=== PATIENT | female | born 1960 | race Caucasian/White ===

== ENCOUNTER → 2018-06-21 | Outpatient (CLI) | payer MEDICARE, MEDICAID ==
[~2018-06-21] MED LIST: ALEN70TA5 PO; OXYC-432 PO; RIVA15TA PO; TOPI25TA8 PO
== END | disposition home or self-care (01) ==
LOC: STAR 14:10
PROVIDERS: ATTEND Surgery
DX: Z02.9 Encounter for administrative examinations, unspecified (principal)

== ENCOUNTER 2018-06-25 10:39 | Day surgery (SDC) | payer MEDICARE, MEDICAID ==
[~2018-06-25] VITALS: Ht 160 cm; Wt 79.6 kg
[2018-06-25 11:10] VITALS: BP 139/103
[2018-06-25] MEDS: LACTATED RINGERS 1,000 ML IV SCH ×2 (11:32→18:19)
[2018-06-25 11:57] LABS: BASOPHILS # (AUTO) 0.03 x10^3/uL (0-0.1); BASOPHILS % (AUTO) 0 % (0-1); EOSINOPHILS # (AUTO) 0.14 x10^3/uL (0-0.4); EOSINOPHILS % (AUTO) 2 % (1-7); LYMPHOCYTES # (AUTO) 1.71 x10^3/uL (1-3.4); LYMPHOCYTES % (AUTO) 27 % (22-44); MD NO; MEAN CORPUSCULAR HEMOGLOBIN 30.1 pg (27.0-34.8); MEAN CORPUSCULAR HGB CONC 33.2 g/dL (32.4-35.8); MEAN CORPUSCULAR VOLUME 90.7 fL (80-100); MEAN PLATELET VOLUME 8.6 fL (7.4-10.4); MONOCYTES # (AUTO) 0.38 x10^3/uL (0.2-0.8); MONOCYTES % (AUTO) 6 % (2-9); NEUTROPHILS # (AUTO) 3.98 x10^3/uL (1.8-6.8); NEUTROPHILS % (AUTO) 64 % (42-75); PLATELET COUNT 288 x10^3/uL (130-400); RED BLOOD COUNT 4.61 x10^6/uL (3.82-5.3); RED CELL DISTRIBUTION WIDTH 14.8 % (9.6-15.2)
[2018-06-25 12:11] LABS: ALANINE AMINOTRANSFERASE 18 U/L (12-78); ALBUMIN 3.1 g/dL (3.4-5.0); ANION GAP 8 mmol/L (5-15); CALCIUM 8.9 mg/dL (8.5-10.1); CHLORIDE 109 mmol/L (98-107)
[2018-06-25 12:13] LABS: ALKALINE PHOSPHATASE 152 U/L (45-117); BILIRUBIN,TOTAL 0.3 mg/dL (0.2-1.0); CREATININE 0.65 mg/dL (0.55-1.02)
[2018-06-25] MEDS ORDERED: BUPIVACAINE/PF 0.5% ONE (12:54)
[2018-06-25] MEDS ORDERED: EPINEPHRINE 1 MG/ML, 1ML ONE (12:54)
[2018-06-25] MEDS ORDERED: BUPIVACAINE/PF-EPI 0.25% 1:200K ONE (12:54)
[2018-06-25] MEDS ORDERED: ONDANSETRON ODT 8 MG PO ONE (13:00)
[2018-06-25] MEDS ORDERED: ACETAMINOPHEN 500 MG TABLET PO ONE (13:00)
[2018-06-25] MEDS ORDERED: FENTANYL PF 250 MCG/5ML ONE ×2 (13:41→14:54)
[2018-06-25] MEDS ORDERED: MIDAZOLAM 1 MG/ML, 2ML ONE (13:41)
[2018-06-25] MEDS ORDERED: PROPOFOL 10 MG/ML, 20ML ONE (13:42)
[2018-06-25] MEDS ORDERED: SODIUM CHLORIDE 0.9% PF 10ML ONE (13:43)
[2018-06-25] MEDS ORDERED: ROCURONIUM 10MG/ML,5ML ONE ×2 (13:43→14:32)
[2018-06-25] MEDS ORDERED: CEFAZOLIN 1,000 MG ONE ×2 (13:43)
[2018-06-25] MEDS ORDERED: GLYCOPYRROLATE 0.4 MG/2 ML, 2ML ONE (13:44)
[2018-06-25] MEDS ORDERED: NEOSTIGMINE 1 MG/ML, 10ML ONE (13:44)
[2018-06-25] MEDS ORDERED: DEXAMETHASONE 4 MG/ML, 1ML ONE ×2 (13:45)
[2018-06-25] MEDS ORDERED: ONDANSETRON 2MG/ML, 2ML ONE (13:45)
[2018-06-25] MEDS ORDERED: OXYcodone 5 MG/5 ML ORAL.SOL UDC PO PRN ×2 (14:00→17:00)
[2018-06-25] MEDS ORDERED: ONDANSETRON ODT 8 MG PO PRN (14:00)
[2018-06-25] MEDS ORDERED: PROMETHAZINE 25 MG/ML, 1ML IM PRN ×2 (14:00)
[2018-06-25] MEDS ORDERED: PROMETHAZINE 25 MG SUPP PR PRN (14:00)
[2018-06-25] MEDS ORDERED: hydrALAzine 20 MG/ML, 1ML IV PRN (14:00)
[2018-06-25] MEDS ORDERED: PROMETHAZINE 25 MG/ML, 1ML IV PRN (14:00)
[2018-06-25] MEDS ORDERED: MEPERIDINE/PF 25MG/0.5ML IVPush PRN (14:00)
[2018-06-25] MEDS ORDERED: LABETALOL 5MG/ML, 20ML IV PRN (14:00)
[2018-06-25] MEDS ORDERED: ONDANSETRON 2MG/ML, 2ML IV PRN (14:00)
[2018-06-25] MEDS ORDERED: MORPHINE SULFATE 4 MG/ML, 1ML IVPush PRN (14:00)
[2018-06-25] MEDS ORDERED: PROMETHAZINE 12.5 MG SUPP PR PRN (14:00)
[2018-06-25] MEDS: FENTANYL PF 100 MCG/2ML IV PRN ×2 (16:30→18:19)
[2018-06-25] MEDS ORDERED: FENTANYL PF 100 MCG/2ML ONE (16:32)
[2018-06-25] MEDS ORDERED: HYDROmorphone 2 MG/ML, 1ML ONE (16:42)
[2018-06-25] MEDS ORDERED: OXYcodone 5 MG/5 ML ORAL.SOL UDC ONE (16:43)
[2018-06-25] MEDS: HYDROmorphone 1 MG/ML, 1ML IV PRN ×3 (16:45→18:19)
[2018-06-25] MEDS ORDERED: ONDANSETRON 2MG/ML, 2ML IVPush PRN (17:00)
[2018-06-25] MEDS ORDERED: DIPHENHYDRAMINE 50 MG/ML, 1ML IVPush PRN (17:00)
[2018-06-25] MEDS ORDERED: KETOROLAC 30 MG/1 ML IVPush PRN (17:00)
[2018-06-25] MEDS ORDERED: morphine SULFATE 10 MG/ML, 1ML IVPush PRN (17:00)
== END 2018-06-25 23:45 | disposition home or self-care (01) ==
LOC: OUT 10:39 → 4NOR 18:01 → OUT 23:45
PROVIDERS: ATTEND Surgery
DX: K43.2 Incisional hernia without obstruction or gangrene (principal); F17.210 Nicotine dependence, cigarettes, uncomplicated; G43.909 Migraine, unspecified, not intractable, without status migrainosus; Z86.718 Personal history of other venous thrombosis and embolism; Z87.39 Personal history of other diseases of the musculoskeletal system and connective tissue; Z90.710 Acquired absence of both cervix and uterus; Z98.890 Other specified postprocedural states
CPT/HCPCS: 36415; 49652; 80053; 85025; C1781; J0171; J0690; J1100; J1170; J1885; J2250; J2405; J2704; J2710; J3010; J3490; J7120; Q0162; G0378